=== PATIENT | male | born 2000 | race Caucasian/White ===

== ENCOUNTER 2019-11-10 18:51 | Emergency (ER) | payer MEDICAID ==
[~2019-11-10] VITALS: Ht 172.7 cm; Wt 86.0 kg
[2019-11-10 19:00] VITALS: BP 101/53
== END 2019-11-11 00:03 | disposition left against medical advice (07) ==
LOC: ER 19:38
DX: M25.561 Pain in right knee (principal); Z53.21 Procedure and treatment not carried out due to patient leaving prior to being seen by health care provider